=== PATIENT | male | born 1965 | race Caucasian/White ===

== ENCOUNTER 2022-11-01 14:44 | Outpatient (CLI) | payer BC, SELFPAY ==
--- NOTE | 2022-11-01 14:40 | DI.RAD_ITS ---
Exam(s) XR KNEE RT 4V AP,LAT,MIHAI,PAT EXAM: XR KNEE RT 4V AP,LAT,MIHAI,PAT CLINICAL HISTORY: evaluate pathology,KNEE PAIN, M25.569. TECHNIQUE: 2D digital imaging was performed of the right knee. Four views obtained. Merchant, AP, la teral and PA tunnel views were obtained. COMPARISON: No exams were available for comparison FINDINGS: BONES: No acute fracture is present. No bony destructive lesion is seen. JOINTS: The knee is normally aligned. No joint effusion is seen. There is mild spurring of the tile layer drainage ior patella. SOFT TISSUE: Normal. IMPRESSION: Minimal degenerative changes of the knee. DATA REPOSITORY: RADIATION DOSE DELIVERED:
[2022-11-01 15:03] LABS: Abs Immature Grans 0.07 10^3/uL (0.0-0.06); Absolute Basophil Count 0.09 10^3/uL (0.0-0.2); Absolute Lymphocyte Count 2.66 10^3/uL (1.2-3.4); Absolute Monocyte Count 0.85 10^3/uL (0.1-0.8); Absolute Neutrophil Count 6.66 10^3/uL (1.2-6.7); Basophils % 0.8; Eosinophils % 5.7; HCT 46.1 % (40.0-50.0); HGB 15.8 g/dL (13.5-17.5); Immature Grans % 0.6; Lymphocytes % 24.3; MCH 29.5 pg (27.0-33.0); MCHC 34.3 % (32.0-36.0); MCV 86 fL (80-95); MPV 11.6 fL (8.0-11.0); Monocytes % 7.8; Neutrophils % 60.8; Platelet Count 240 10^3/uL (130-400); RBC 5.36 10^6/uL (4.36-5.78); RDW-SD 37.6 fL; WBC 10.96 10^3/uL (4.4-10.8)
[2022-11-01 15:07] LABS: Absolute Eosinophil Count 0.62 10^3/uL (0.0-0.7)
[2022-11-01 15:14] LABS: Uric Acid 5.6 mg/dL (3.5-7.2)
== END 2022-11-01 14:45 | disposition home or self-care (01) ==
LOC: LBO 14:46
PROVIDERS: Visit Provider Nurse Practitioner Family
DX: M25.561 Pain in right knee (principal)
CPT/HCPCS: 36415; 73564; 84550; 85025

== ENCOUNTER 2023-06-26 13:02 | Emergency (ER) | payer BC, SELFPAY ==
[2023-06-26] VITALS (29 sets, daily range): BP systolic 152–195; BP diastolic 83–121; PULSE 82–102; RESP 18; TEMP 36.6; O2SAT 91–96
--- NOTE | 2023-06-26 13:06 | W.ED.GENAD ---
Discharge Plan Disposition Patient Disposition: Home Discharge Details Clinical Impression: Acute urinary retention, New onset type 2 diabetes mellitus, Blood pressure elevated without history of HTN Primary Care Provider: Ema Guillory ED Provider: Jaleel Bañuelos Home Meds and New Rx's Prescriptions: New metformin 500 mg tablet 500 mg PO BID Qty: 60 0RF Discharge Instructions Instructions: Urinary Retention in Men (ED) Additional Instructions: You were seen in the emergency department for your bladder pain. You are found to have acute urinary retention for which a Padilla catheter was placed. Please call the urology team to schedule a follow-up appointment for a voiding trial to have your catheter removed. You are also found to have diabetes for which you are starting a new medicine. Please take this as directed. As we discussed, your blood pressure was elevated. Your primary care provider will likely start you on a new medicine. Please follow-up tomorrow with your primary care provider as previously scheduled. Please return to the emergency department if you develop abdominal pain chest pain shortness of breath or have any other concerns. Referrals: Chester Piedra MD [ [facility] STAFF PHYSICIAN] - Jenny Whitmore DNP [NURSE PRACTITIONER] - [facility] General Date/Time Provider Initiated Documentation: 06/26/23 13:06. [facility] Narrative: MDM This is an uncomfortable tachycardic hypertensive 58-year-old male with acute urinary retention with approximately 1000 cc of retention for which patient will receive catheter placement. Patient does have hydronephrosis but in the absence of flank pain I am not suspicious for ureteral lithiasis. Will obtain CBC and basic metabolic panel to ensure patient is not anemic and does not have TERRA. No significant abdominal pain to suggest ruptured AAA. Patient is circumcised and denies preceding dysuria and frequency so my suspicion for UTI is low. As result we will observe patient off of antibiotics. No pain out of proportion to suggest necrotizing soft tissue infection. Patient is not sexually active and denies abnormal urethral discharge, suspicion for sexually transmitted infection is low. No right lower quadrant tenderness to suggest appendicitis. 1:40 PM Urinalysis showing proteinuria large blood and glucosuria. 2:15 PM Patient felt markedly improved. CBC showing new leukocytosis. No thrombocytopenia. No anemia. I have asked health manager intensive care unit [facility] to have patient seen within the week by urology in the setting of acute urinary retention. 2:30 PM Basic metabolic panel showing abnormal renal function with a creatinine of 1.6. Patient was found to have glucose area. He had an anion gap of 14 and elevated BUN. He had a normal bicarbonate??not consistent with DKA. Will provide 1 L of IV fluids and repeat basic metabolic panel. 3:07 PM Patient had acutely elevated hemoglobin A1c at 11.5% consistent with new onset type 2 diabetes. Given his elevated creatinine I feel that metformin is contraindicated at this point. I have reached out to his primary care team to discuss further management. 3:15 PM I spoke with Enid Garcia from the patient's primary care office. She advised initiating metformin 500 mg twice daily. She said that the patient's primary care would follow-up with him tomorrow. She advised metformin despite the patient's creatinine. Will repeat creatinine prior to administration of metformin. Given his elevated blood pressure without history of hypertension he would likely also benefit from antihypertensive medications but will defer this decision to his primary care provider upon reassessment tomorrow. 3:55 PM Patient is still receiving his fluids. I signed the patient off to Dr. Portillo we will reassess the patient. I have written him for continued discharge instructions. I passed along the numbers for the urology clinic. Chronic conditions affecting the care of the patient: Ureterolithiasis History obtained from an outside historian: N/A External record review: No [facility] [place] Medications: Uro-Jet Social determinants of health affecting disposition: N/A Management discussed with: Dr. Portillo Treatment/interventions considered: N/A Response to therapies provided: Improved symptoms status post Padilla HPI This is a 58-year-old male with history of ureterolithiasis arrived to the emergency department via private vehicle unable to urinate since last night. Patient has remote history of ureterolithiasis which he has passed spontaneously. He never had any urological interventions. He reports that he was in his usual state of health until this morning. He denies fevers dysuria and frequency. He does feel urinary urgency. He has never had a urinary tract infection. He is circumcised. He reports is not sexually active and has never had a sexually transmitted infection. No fevers cough chest pain or shortness of breath. Patient denies routine tobacco, ethanol, and illicits. Exam General: Well-appearing in no acute distress speaking in complete sentences. Head: Normocephalic, atraumatic. Eye: Extraocular eye movements intact. No conjunctival injection. No scleral icterus. Ear, nose, mouth, throat: Grossly normal inspection. Normal voice, handling secretions normally. Neck: Trachea midline. Cardiovascular: Well-perfused distal extremities. Respiratory: Nonlabored respiration. Gastrointestinal: Nondistended abdomen. Suprapubic tenderness with fullness Musculoskeletal: No edema. Moving all 4 extremities spontaneously. Skin: Normal for age and race, grossly normal temperature and turgor. No acute rash. Neurologic: Alert and appropriate, no apparent acute deficits. Psychiatric: Mood and manner are appropriate. Grooming and personal hygiene are appropriate. Related Data Home Medications Medication Instructions Recorded Confirmed metformin 500 mg tablet 500 mg PO BID #60 tabs 06/26/23 Previous Rx's Medication Instructions Recorded metformin 500 mg tablet 500 mg PO BID #60 tabs 06/26/23 Allergies Allergy/AdvReac Type Severity Reaction Status Date / Time No Known Allergies Allergy Unverified 06/26/23 13:11 PFSH All Active Problems (Updated 06/26/23 @ 15:30 by Jaleel Bañuelos MD) Blood pressure elevated without history of HTN (Acute) New onset type 2 diabetes mellitus (Acute) Acute urinary retention (Acute) Social History Smoking/Tobacco Use Status: Never Smoking risk assessment performed?: Yes Alcohol Intake: never Substance use type: does not use Do you feel safe at home: Yes Do you feel safe in your relationship?: Yes POCUS Exam (ED) Limited Retroperitoneal(Renal)Exam DATE OF EXAM: 06/26/23 TIME OF EXAM: 13:45 PROVIDER THAT PERFORMED THE STUDY: Jaleel Bañuelos IS THIS A REPEAT EXAM DURING THIS ENCOUNTER: No REASON FOR EXAM: Other indication: Suprapubic discomfort VISUALIZED STRUCTURES: Left kidney, Right kidney and Other structures: Bladder PERTINENT FINDINGS/IMPRESSION: Hydronephrosis present bilaterally INCIDENTAL FINDINGS: Moderate bilateral hydronephrosis Exam complete
[2023-06-26 13:19] LABS: Bilirubin Negative (Negative); Blood Large (Negative); Clarity Sl Cloudy (Clear); Glucose >=1000 mg/dL (Negative); Ketones Negative (Negative); Leukocyte Esterase Negative (Negative); Nitrite Negative (Negative); Specific Gravity 1.015 (1.005-1.025); Urobilinogen 0.2 mg/dL (Up to 0.2); pH 6.5 (5-8)
[2023-06-26 13:30] LABS: Bacteria Negative HPF (Negative); C & S Indicated? No; Casts 0-2 Hyaline LPF (Negative); Crystals Negative HPF (Negative); Epithelial Cells Rare HPF (Negative); Mucus Trace (Negative); RBC >50 HPF (0-2); WBC Negative HPF (0-5)
[2023-06-26] MEDS: Lidocaine 2% Jelly 6 ML SYR (13:40)
[2023-06-26 13:56] LABS: Abs Immature Grans 0.21 10^3/uL (0.0-0.06); Absolute Eosinophil Count 0.03 10^3/uL (0.0-0.7); Absolute Lymphocyte Count 1.05 10^3/uL (1.2-3.4); Absolute Monocyte Count 0.65 10^3/uL (0.1-0.8); Absolute Neutrophil Count 15.13 10^3/uL (1.2-6.7); Basophils % 0.6; Eosinophils % 0.2; HCT 46.7 % (40.0-50.0); HGB 15.9 g/dL (13.5-17.5); Immature Grans % 1.2; Lymphocytes % 6.1; MCH 28.8 pg (27.0-33.0); MCV 84 fL (80-95); MPV 11.9 fL (8.0-11.0); Monocytes % 3.8; Neutrophils % 88.1; Platelet Count 206 10^3/uL (130-400); RBC 5.53 10^6/uL (4.36-5.78); RDW-SD 37.1 fL; WBC 17.17 10^3/uL (4.4-10.8)
[2023-06-26 14:16] LABS: Anion Gap 14.7 mmol/L (3-11); BUN 27 mg/dL (7-18); CO2 21.3 mmol/L (21.0-32.0); CREATININE 1.6 mg/dL (0.70-1.30); Calcium 9.7 mg/dL (8.5-10.1); Chloride 98 mmol/L (98-107); Estimated GFR 49.94 (mL/min/1.73m2); Potassium 4.2 mmol/L (3.5-5.1); Sodium 134 mmol/L (136-145)
[2023-06-26 14:20] LABS: Glucose 518 mg/dL (74-106)
--- NOTE | 2023-06-26 14:22 | NUR.NOTE ---
Referral faxed to [facility] Urology for urinary retention, trujillo placed today/ within 1 week. Nursing Note:
[2023-06-26] MEDS: Normal Saline 1,000 ML 1000 ML IV (14:40)
[2023-06-26 14:50] LABS: Hemoglobin A1C 11.5 % (<5.7)
[2023-06-26 16:57] LABS: Anion Gap 10.1 mmol/L (3-11); BUN 25 mg/dL (7-18); CO2 24.9 mmol/L (21.0-32.0); CREATININE 1.3 mg/dL (0.70-1.30); Chloride 103 mmol/L (98-107); Estimated GFR 64.07 (mL/min/1.73m2); Glucose 396 mg/dL (74-106); Potassium 4.3 mmol/L (3.5-5.1); Sodium 138 mmol/L (136-145)
[2023-06-26] MEDS: metFORMIN 500 MG TAB PO (17:23)
== END 2023-06-26 17:24 | disposition home or self-care (01) ==
PROVIDERS: Emergency Medicine; Emergency Provider Emergency Medicine; PCP Nurse Practitioner Family
DX: R33.9 Retention of urine, unspecified (principal); E11.9 Type 2 diabetes mellitus without complications; R03.0 Elevated blood-pressure reading, without diagnosis of hypertension
CPT/HCPCS: 36415; 51702; 76775; 80048; 96360; 99284; 81003; 81015; 83036; 85025

== ENCOUNTER 2023-06-26 21:02 | Outpatient (REF) | payer BC, SELFPAY ==
[2023-06-26 22:08] LABS: Bilirubin Negative (Negative); Blood Large (Negative); Clarity Cloudy (Clear); Glucose >=1000 mg/dL (Negative); Ketones Negative (Negative); Leukocyte Esterase Trace (Negative); Nitrite Negative (Negative); Specific Gravity 1.015 (1.005-1.025); Urobilinogen 0.2 mg/dL (Up to 0.2); pH 6.5 (5-8)
[2023-06-26 22:30] LABS: Epithelial Cells Rare HPF (Negative)
[2023-06-26 22:31] LABS: Bacteria Rare HPF (Negative); C & S Indicated? Yes; Casts Negative LPF (Negative); Crystals Negative HPF (Negative); Mucus Negative (Negative)
== END 2023-06-26 21:03 | disposition home or self-care (01) ==
LOC: LBN 21:02
PROVIDERS: PCP Nurse Practitioner Family; Visit Provider Nurse Practitioner Family
DX: R31.9 Hematuria, unspecified (principal)
CPT/HCPCS: 81003; 81015; 87086

== ENCOUNTER 2023-06-28 03:42 | Outpatient (CLI) | payer BC, SELFPAY ==
[2023-06-28 12:22] LABS: HCT 44.4 % (40.0-50.0); MCH 28.7 pg (27.0-33.0); MCHC 33.8 % (32.0-36.0); MCV 85 fL (80-95); MPV 12.1 fL (8.0-11.0); Platelet Count 199 10^3/uL (130-400); RBC 5.22 10^6/uL (4.36-5.78); RDW 12.2 % (11.8-14.1); RDW-SD 37.9 fL; WBC 12.08 10^3/uL (4.4-10.8)
[2023-06-28 12:28] LABS: ALT 53 U/L (16-63); AST 45 U/L (15-37); Albumin 3.8 g/dL (3.4-5.0); Alkaline Phosphatase 79 U/L (46-116); Anion Gap 12.9 mmol/L (3-11); BUN 21 mg/dL (7-18); Bilirubin, Total 0.7 mg/dL (0.2-1.0); CO2 23.1 mmol/L (21.0-32.0); CREATININE 1.2 mg/dL (0.70-1.30); Calcium 9.1 mg/dL (8.5-10.1); Chloride 101 mmol/L (98-107); Estimated GFR 70.53 (mL/min/1.73m2); Glucose 273 mg/dL (74-106); Potassium 3.5 mmol/L (3.5-5.1); Sodium 137 mmol/L (136-145)
[2023-06-28 20:32] LABS: PSA, Screening 1.6 ng/mL (<=3.5)
== END 2023-06-28 03:43 | disposition home or self-care (01) ==
LOC: LOS 03:42
PROVIDERS: PCP Nurse Practitioner Family; Visit Provider Nurse Practitioner Family
DX: E11.9 Type 2 diabetes mellitus without complications (principal); R03.0 Elevated blood-pressure reading, without diagnosis of hypertension; R33.8 Other retention of urine; Z12.5 Encounter for screening for malignant neoplasm of prostate
CPT/HCPCS: 36415; 80053; 84153; 85027

== ENCOUNTER 2023-07-17 14:09 | Outpatient (REF) | payer BC, SELFPAY ==
[2023-07-22 12:42] LABS: Source: Kidney
== END 2023-07-17 14:10 | disposition home or self-care (01) ==
LOC: LBN 14:09
PROVIDERS: PCP Nurse Practitioner Family; Visit Provider Nurse Practitioner Gerontology
DX: N20.0 Calculus of kidney (principal)
CPT/HCPCS: 82365

== ENCOUNTER 2024-07-07 03:20 | Outpatient (CLI) | payer BC, SELFPAY ==
[2024-07-07 15:37] LABS: HCT 44.2 % (40.0-50.0); HGB 15.2 g/dL (13.5-17.5); MCH 29.6 pg (27.0-33.0); MCHC 34.4 % (32.0-36.0); MCV 86 fL (80-95); MPV 10.6 fL (8.0-11.0); Platelet Count 228 10^3/uL (130-400); RBC 5.14 10^6/uL (4.36-5.78); RDW 12.1 % (11.8-14.1); RDW-SD 38.3 fL; WBC 12.39 10^3/uL (4.4-10.8)
[2024-07-07 17:27] LABS: Calculated LDL 105 mg/dL (<100); Cholesterol 179 mg/dL (<200); HDL Cholesterol 49 mg/dL (40-60); Triglyceride 129 mg/dL (<150)
[2024-07-08 19:05] LABS: PSA, Screening 1.9 ng/mL (<=3.5)
== END 2024-07-07 03:21 | disposition home or self-care (01) ==
LOC: LBO 03:20
PROVIDERS: PCP Nurse Practitioner Family; Visit Provider Nurse Practitioner Family
DX: Z00.00 Encounter for general adult medical examination without abnormal findings (principal); I10 Essential (primary) hypertension; E11.9 Type 2 diabetes mellitus without complications; Z12.5 Encounter for screening for malignant neoplasm of prostate
CPT/HCPCS: 36415; 80061; 84153; 85027

== ENCOUNTER 2024-10-09 06:17 | Day surgery (SDC) | payer BC, SELFPAY ==
--- NOTE | 2024-10-08 17:55 | W.PM.DSUDISC ---
Date of service: 10/09/24 Discharge Plan Disposition Patient Disposition: Home Condition: Good Discharge Details Reason For Visit: Screening colonoscopy Attending Provider: Tucker Yo Primary Care Provider: Ema Guillory Home Meds and New Rx's Prescriptions: Continued Trulicity 0.75 mg/0.5 mL pen injector 0.75 mg subcut QWEEK Qty: 2 3RF olmesartan 5 mg tablet 10 mg PO DAILY Qty: 180 1RF tamsulosin 0.4 mg capsule 0.4 mg PO QHS Qty: 90 1RF Discontinued bisacodyl [Dulcolax (bisacodyl)] 5 mg tablet,delayed release (DR/EC) 5 mg PO ONCE Qty: 4 0RF Rx Instructions: Take per colonoscopy instructions provided by ordering providers office polyethylene glycol 3350 17 gram/dose powder 17 g PO ONCE Qty: 238 0RF Rx Instructions: Take per colonoscopy instructions provided by ordering providers office Discharge Instructions Instructions: Colon polyps Additional Instructions: Benedicto, it was great meeting you today, and I hope you are comfortable through the procedure. Everything went very smoothly. I did find, and removed a total of 3 polyps today. None of them have any features that are worrisome to the naked eye, but all of these polyps will be sent off for testing since polyps, different types, we will use that information to help figure out the timing of your future colonoscopies. The results from the polyp report will take about a week or 2 to get back, but once my office has had information, we will be in touch. If you need anything in the meantime, please do not hesitate to ask. 1. If tolerated, consume a soft, low fiber diet for 1-2 days. 2[address] Do not drive, drink alcohol, operate machinery, make critical decisions, or do activities that require coordination or balance for 24 hours. 3. Because air was put into your colon during the procedure, expelling air from your rectum (passing gas or farting) is normal. 4. You may not have a bowel movement for 1-3 days because of the colonoscopy prep. This is normal. 5. Go directly to the emergency room if you notice any of the following: Develop chills (warm to touch), or if you have a thermometer and your temperature is above 101 Difficulty breathing or difficultly swallowing Persistent vomiting Severe abdominal pain, other than gas cramps Severe chest pain Black, tarry stools Any bleeding ? exceeding one tablespoon 6. Call your physician if the site where your intravenous was started becomes red, swollen, painful, and warm to touch. 7. Your physician has reviewed your pre-procedure medications. Please continue to take those medications as previously ordered. You will be given specific information/education regarding any changes to your medications before leaving. Stand Alone Forms: Anesthesia Discharge InstCelestina Cates (DSU) Activity:: Activity as Tolerated Diet:: As Tolerated Discharge Orders Discharge Orders: Discharge Order (Routine); Ordered 10/08/24 Ordered By: Tucker Yo DS: Diagnosis Discharge Diagnosis (1) Encounter for screening colonoscopy: Status: Acute Asessment and Plan: Follow-up on polypectomy results
--- NOTE | 2024-10-08 17:56 | W.COLOREPORT ---
Date of service: 10/09/24 Time of Service: 08:18 Colonoscopy Report Date of procedure: 10/09/24 Pre-op diagnosis general: Screening colonoscopy Post-op diagnosis procedure note: other (Colon polyps) Procedure: Colonoscopy with polypectomy Surgeon: Tucker Yo Anesthesia Type: General:No Airway Estimated blood loss (mL): 5 Pathology: other (0.25 cm flat rectal polyp, 0.25 cm pedunculated polyp at 20 cm, 0.25 cm polyp at 40 cm) Complications: None Disposition: same day Indications: Benedicto is a 59-year-old male who needs a screening colonoscopy for routine health maintenance Prep: Miralax/Dulcolax Procedure Start Time: 07:35 Procedure End Time: 07:56 Retraction Time: 12 Findings: 0.25 cm flat rectal polyp, 0.25 cm pedunculated polyp at 20 cm, 0.25 cm polyp at 40 cm Procedure Description: After the induction of anesthesia, and with the patient in left lateral decubitus position, I began by performing an external anorectal exam.? Perineum and skin were normal, as was the anal verge.? There was no evidence of external hemorrhoids.? Next, I performed a digital rectal exam.? I did not appreciate any abnormal findings.? Next, I advanced a colonoscope into the rectal vault.? I performed retroflexion.? This appeared normal.? Using insufflation, I then advanced the colonoscope beyond the rectal folds and into the sigmoid colon before advancing towards the cecum.? In the top portion of the rectal vault was a 0.25 cm mostly flat polyp. This was removed with cold forceps as advancing through. There is minimal bleeding from the site. The quality of the prep was excellent.? The scope was noted to be in the cecum by identification of the ileocecal valve and appendiceal orifice.? I then began withdrawing the colonoscope using repeated irrigation as necessary for full evaluation of the colonic mucosa. Around 40 cm from the anal verge I identified a 0.25 cm polyp. ?It appeared pedunculated in character. ?I was able to remove this with a cold forcep polypectomy. ?I examined the site, and there was minimal bleeding. ?Once this was completed, I continued to withdraw the scope and examine the remainder of the colonic mucosa. Another 0.25 cm polyp was found at 40 cm. This was also removed without issue. ?Once the scope was withdrawn to the level of the rectum, great care was taken to examine portions of the rectal folds.? Finally, the scope was withdrawn and the patient was brought to the same-day surgery recovery unit as the anesthetic wore off. ?The findings and instructions were shared with the patient prior to discharge. [place] Bowel Prep [place] Bowel Prep Right Colon: 3 Left Colon: 3 Transverse Colon: 3 Total Score: 9
[2024-10-09 06:20] VITALS: BP 119/73; PULSE 63; RESP 18; TEMP 36.7; O2SAT 100
[2024-10-09 06:37] VITALS: BP 119/73; PULSE 63; RESP 18; TEMP 36.7; O2SAT 100
[2024-10-09] MEDS: Lactated Ringers 1,000 ML 80 ML IV (06:50)
--- NOTE | 2024-10-09 07:02 | ANES.PREOP_ITS ---
General Info Date of Service Date Performed: 10/09/24 Height: 5 ft 8 in Weight: 81.3 kg Body Mass Index (BMI): 27.2 Surgical Procedure: Operation Date: 10/09/24 07:35 Proposed Procedure Side Surgeon p Angelito Yo MD Meds Allergies and Home Medications Allergies Allergy/AdvReac Type Severity Reaction Status Date / Time No Known Allergies Allergy Verified 10/09/24 06:30 Home Medication ?Medication ?Instructions ?Recorded dulaglutide 0.75 mg/0.5 mL 0.75 mg (0.5 mL) subcut QWEEK #2 mL 06/29/24 subcutaneous pen injector ([employer]) olmesartan 5 mg tablet 10 mg (2 x 5 mg) PO DAILY #180 tabs 09/04/24 tamsulosin 0.4 mg capsule 0.4 mg PO QHS #90 caps 09/04/24 Current Visit Medications: Current Medications Generic Name Dose Route Start Last Admin Trade Name Freq PRN Reason Stop Dose Admin Ringer's Solution 1,000 mls @ 80 mls/hr 10/09/24 06:00 10/09/24 06:50 IV 10/09/24 23:59 80 mls/hr INFUSION OMKAR Administration IV Miscellaneous Supplies 1 each 10/09/24 06:00 Iv Access IV 10/09/24 23:59 DIRECTED OMKAR Ondansetron HCl 4 mg 10/08/24 17:56 Ondansetron 4 Mg/2 Ml Vial IVP 11/07/24 17:55 Q4H PRN PRN Nausea / Vomiting Sodium Chloride 0 ml 10/09/24 06:00 Normal Saline Flush 10 Ml Syr IV 10/09/24 23:59 PRN PRN Sodium Chloride 0 ml 10/09/24 06:00 Normal Saline 10 Ml Vial IJ 10/09/24 23:59 DIRECTED PRN Sterile Water 0 ml 10/09/24 06:00 Water,Injection,Sterile 10 Ml Vial IJ 10/09/24 23:59 DIRECTED PRN PFSH Active Problems Active Problems: Problem Status Onset Code Encounter for screening colonoscopy Acute Z12.11 Impacted cerumen of left ear Acute H61.22 Diabetes Chronic E11.9 Hypertension Chronic I10 Kidney stones Chronic N20.0 Right-sided hemiplegic cerebral palsy Acute G80.8 Tobacco Smoking/Tobacco Use Status: Never Passive smoking exposure: Yes Second hand exposure: Yes Alcohol Alcohol Intake: current Alcohol intake frequency: holidays/special occasions only Alcohol type: beer Details: 6 or more drinks monthly or less Substance Use Substance use: Never Substance use type: does not use Vital Signs and Lab Results Vital Signs Most Recent Vital Signs in EMR: Most Recent Vital Signs Temp Pulse Resp BP Pulse Ox 36.7 C 63 18 119/73 100 10/09/24 06:37 10/09/24 06:37 10/09/24 06:37 10/09/24 06:37 10/09/24 06:37 Point of Care Results Point of Care Results: Finger Stick Blood Glucose 106 10/09/24 06:47 Lab Results Blood Type / Crossmatch: No Data to Display Complete Blood Count: No Data to Display Complete Metabolic Panel: No Data to Display Liver Function Panel: No Data to Display Coagulation Panel: No Data to Display Cardiac Panel: No Data to Display Arterial Blood Gas: No Data to Display Venous Blood Gas: No Data to Display Pancreas Panel: No Data to Display Thyroid Panel: No Data to Display Infectious Disease: No Data to Display Blood Cultures: No Data to Display Toxicology Panel: No Data to Display Anesthesia Assessment and Plan Anesthesia History Personal History: No History of General Anesthesia Family History: No Family History of Anesthesia Complications Exercise Tolerance Exercise Tolerance: Metabolic Equivalents>4 Pertinent Negatives Pertinent Negatives: No Symptoms of GERD, No Major Cardiovascular Symptoms or Complaints and No Major Pulmonary Symptoms or Complaints Cardiac & Pulmonary Exam Cardiac Exam: Normal S1/S2 Heart Sounds Pulmonary Exam: Clear Bilateral Breath Sounds Implantable Cardiac Device Does patient have a Pacemaker or an ICD?: No Airway Exam Known Difficult Airway: No Mallampati Class: 3 Mouth Opening: Normal (> 3cm) Thyromental Distance: Greater than 3 cm Neck Range of Motion: Full ROM Neck Circumference: Normal Teeth Condition: Normal Dentition ASA Classification ASA Score: ASA 3 Emergency Case?: No NPO Status NPO Status: NPO Clears >2 hours, Solids >8 hours Anesthesia Plan Resuscitation Status: Full Code Anesthesia Technique: General Anesthesia Airway Planned: Natural Airway Monitors Used: Standard Monitors
[2024-10-09 07:04] VITALS: BMI 27.2
--- NOTE | 2024-10-09 07:36 | BOWEL_PTH ---
PATIENT: Benedicto Knapp LOC: [facility] U#:[id number] AGE/SX: 59/M ROOM: RE10/09/[address]: Tucker Yo MD : 1965 BED: DIS: 10/09/2024 SPEC #: [id number] RECD: 10/09/24 12:49 STATUS: LOKESH RE #: [id number] QUE: 10/09/24 07:[address]: Tucker Yo DEPT: Surgical Specimen RECD BY: Nellie Mann ENTERED: 10/09/24 12:51 SP TYPE: Bowel OTHR DR: Ema Guillory, E[employer] FRAMES INSPECTOR Tissues: 1 - BIOPSY BOWEL 2 - BIOPSY BOWEL 3 - BIOPSY BOWEL Procedures: GROSS AND MICRO LEVEL 4 Comments: [id number]
[2024-10-09 08:00] VITALS: BP 107/62; PULSE 73; RESP 16; TEMP 36.4; O2SAT 99
--- NOTE | 2024-10-09 08:12 | W.ANESPOSTOP ---
Postoperative Evaluation Date, Time and Location Date Performed: 10/09/24 Time Performed: 08:12 Patient Location: Day Surgery Unit Vital Signs Most Recent Imported Vital Signs: Most Recent Vital Signs Temp Pulse Resp BP Pulse Ox 36.4 C L 73 16 107/62 99 10/09/24 08:00 10/09/24 08:00 10/09/24 08:00 10/09/24 08:00 10/09/24 08:00 Pain Score Most Recent Pain Score: Most Recent Pain Score Pain Level 0 10/09/24 08:00 Assessment Mental Status: Awake (Alert & Oriented to Patient Baseline) Airway and Respiratory Function: Patent airway with normal (patient baseline) respiratory exam Cardiovascular Function: Hemodynamically Stable Hydration Status: Adequately Hydrated Nausea & Vomiting: No Nausea or Vomiting Pain: Pt. Denies Any Pain Peripheral Nerve Block: Patient did not receive a nerve block
[2024-10-09 08:29] VITALS: BP 125/78; PULSE 69; RESP 16; TEMP 36.6; O2SAT 99
== END 2024-10-09 08:45 | disposition home or self-care (01) ==
LOC: SUR 06:18
PROVIDERS: PCP Nurse Practitioner Family; Visit Provider Surgery
PROC: 0DJD8ZZ Inspection of Lower Intestinal Tract, Via Natural or Artificial Opening Endoscopic (ICD-10-PCS; CPT 45378; principal; 2024-10-09 07:30)
DX: Z12.11 Encounter for screening for malignant neoplasm of colon (principal); K63.5 Polyp of colon; K63.89 Other specified diseases of intestine
CPT/HCPCS: 45380; 88305; J2003; J2704